=== PATIENT | female | born 1950 | race Caucasian/White ===

== ENCOUNTER 2016-07-13 11:41 | Inpatient (IN) | payer OTHER, MEDICARE ==
--- OUTSIDE RECORDS SUMMARY | 2016-07-13 11:46 | XMS REPORT | Continuity of Care Document ---
:1950 Author Organization [facility] ([facility]) Address [address] [place] [address] Phone [phone] Care Team Providers Name Role Phone FletcherKristiCruz Primary Care Provider [phone] Source Comments This disclosure is being made pursuant to the Care Everywhere program, applicable federal and state laws, and may not contain all informaitonavailable regarding this patient.[facility] ([facility]) Active Allergies and Adverse Reactions Allergen Noted Date Severity Reactions Comments Imidazole 09/01/2014 Unknown Nsaids (Non-Steroidal Anti-Inflammatory Drug) 09/01/2014 Unknown Salicylates 09/01/2014 Unknown Current Medications Prescription Sig. Disp. Refills Start Date End Date Status glyBURIDE 5 mg tablet Take 5 mg by mouth Active every morning with breakfast losartan 25 mg tablet Take 25 mg by mouth Active daily metoPROLol succinate Take 200 mg by mouth Active 100 mg XL tablet 2 times daily dronedarone (MULTAQ) Take 400 mg by mouth Active 400 mg tablet 2 times daily with meals acetaminophen 325 mg Take 2 Tabs (650 mg 60 Tab 09/03/2014 Active tablet total) by mouth every 4 hours as needed atorvastatin 10 mg Take 1 Tab (10 mg 30 Tab 11 09/03/2014 Active tablet total) by mouth daily docusate 100 mg Take 1 Cap (100 mg 60 Cap 09/03/2014 Active capsule total) by mouth 2 times daily as needed for Constipation multivitamin tablet Take 1 Tab by mouth 30 Tab 11 09/03/2014 Active daily rivaroxaban (XARELTO) Take 1 Tab (20 mg 30 Tab 11 09/13/2014 Active 20 mg tablet total) by mouth every evening with dinner clopidogrel 75 mg Take 1 Tab (75 mg 10 Tab 0 09/03/2014 Active tablet total) by mouth daily Active Problems Problem Noted Date Cardiomyopathy in other diseases classified elsewhere 12/11/2014 Overview: Tachycardia-mediated Paroxysmal atrial fibrillation 12/11/2014 Essential hypertension 12/11/2014 Mitral regurgitation 12/11/2014 Morbid obesity 08/31/2014 Stroke 08/31/2014 Memory problem 08/31/2014 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 Headache(784.0) 08/31/2014 Abnormal MRI of head 08/31/2014 Social History Tobacco Use Types Packs/Day Years Used Date Never Smoker Smokeless Tobacco: Never Used Tobacco Cessation:Counseling Given: Yes Comments: Last Filed Vital Signs Vital Sign Reading Time Taken Blood Pressure 110/70 01/23/2015 2:07 PM CDT Pulse 72 01/23/2015 2:07 PM CDT Temperature 36.7 C (98.1 F) 09/03/2014 12:00 PM CDT Respiratory Rate 18 01/23/2015 2:07 PM CDT Height 1.6 m (5' 3") 01/23/2015 2:07 PM CDT Weight 117.935 kg (260 lb) 01/23/2015 2:07 PM CDT Body Mass Index 46.07 01/23/2015 2:07 PM CDT Oxygen Saturation 94% 09/03/2014 12:00 PM CDT Plan of Care Health Maintenance Due Date Last Done Comments HCV Screening 1950 Hepatitis B Vaccine (1 of 3 1950 - Primary Series) Tdap Vaccine 11/03/1962 Td Vaccine 11/03/1969 Pneumococcal Vaccine (1 of 1 11/03/1970 - PPSV23) Cervical Cancer Screening 11/03/1981 Mammogram 1991 Colonoscopy 11/03/2001 Zoster Vaccine 2011 Influenza Vaccine: Seasonal 11/25/2015 (#1) HCC Annual Coding Diabetes 04/26/2016 09/03/2014, Additional history exists without Complication 09/03/2014, 09/03/2014 Lipid Disorder Screening 09/02/2019 09/01/2014 Results from Last 3 Months Not on file
--- NOTE | 2016-07-13 12:21 | HP ---
Chief Complaint - Chief Complaint Date of Service: 07/13/16 Time of Service: 12:20 Chief Complaint: Swelling and redness of right foot especially of third toe with drainage for the last 10 days History of Present Illness: Patient is a 65-year-old WF with a history of HTN, HLD, T2DM, chronic A. fib, gout who came to the office because of redness and swelling of the distal half of RT foot; drainage, swelling and redness of third digit of the RT foot for the last 2 weeks. The drainage is serosanguineous in nature. She denies any fevers or chills and blood sugars have been in the 200s'. Patient was admitted for further care and treatment. Significant labs: WBC 15.3, ESR 119, CRP 27.3, pro-calcitonin 0.38, lactic acid 1.8. After blood cultures, the patient will be started on ampicillin/sulbactam 3 g IV Q6H and vancomycin 1 g IV Q12H. X-ray of the RT foot followed by an MRI with contrast have been ordered. - Patient's Past Medical History Additional info: PAST MEDICAL HISTORY: Hypertension, hyperlipidemia, T2DM 1999, chronic A. fib 2012 [Pradaxa and multaq ], obesity BMI 41.0, Gout. Sleep apnea[nasal CPAP at 10 cm of water with C-Flex of 2], CVA in 08/2014 [LT posterior cerebral artery territory involving LT medial temporal lobe, LT occipital lobe and LT frontal lobe]. Pharmacological stress test negative for ischemia in 06/2013. Patient History - Cancer: No Hx of Cancer Additional Info: PAST SURGICAL HISTORY: Appendectomy, tonsillectomy, BSO, bilateral laser eye surgery. Refuses colonoscopy Tubal ligation, uterine ablation for heavy periods. Patient History - Other: None - Family History Mother Family History - Medical: - 70's-COPD Father Family History - Medical: - 50's- AVR replacement and failure. - Social History Living Situations: spouse Abuse History: No History of abuse Psych History: No pertinent hx Smoking Status: Never smoker Have you smoked in the past 12 months: No Do you dip or chew tobacco: No Patient requests Smoking Cessation Consult: No Initiate information on Smoking Cessation: No Alcohol Use: none Drug Use: none - Immunizations Immunizations Up to Date: Yes Hx Pneumococcal Vaccination: No History of Influenza Vaccine: Yes Review Of Systems (GEN) - Review of Systems Generalized/Overall Review: Absent: Chills, Fever, Weight loss Respiratory: Absent: Cough, Shortness of Breath Cardiac: Present: Edema - RT foot. Absent: Chest Pain Musculoskeletal: Present: Other - pain , swelling, drainage 3rd digit - RT foot. Immunizations: IMMUNIZATION HX Immunizations Up to Date Yes History of Influenza Vaccine Yes Hx Pneumococcal Vaccination No Allergies/Adverse Reactions: Allergies Allergy/AdvReac Type Severity Reaction Status Date / Time No Known Allergies Allergy Verified 08/23/13 07:49 Home Medications: HOME MEDICATIONS Glyburide 2.5 mg PO BID 06/29/13 [Last Taken 08/22/13] Metformin HCl 1,000 mg PO BID 06/29/13 [Last Taken 08/22/13] Losartan Potassium [Cozaar] 25 mg PO DAILY #0 tablet 08/23/13 [Last Taken Unknown] Allopurinol [Zyloprim] 300 mg PO DAILY 08/31/14 [Last Taken Unknown] Dabigatran Etexilate Mesylate [Pradaxa] 150 mg PO BID 08/31/14 [Last Taken Unknown] Dronedarone Hydrochloride [Multaq] 400 mg PO BID 08/31/14 [Last Taken Unknown] Atorvastatin Calcium 10 mg PO HS 07/13/16 [Last Taken Unknown] Calcium Carbonate [Tums] 300 mg PO PRN PRN 07/13/16 [Last Taken Unknown] Metoprolol Succinate [Toprol Xl] 200 mg PO BID 07/13/16 [Last Taken Unknown] Multivitamin tab PO DAILY 07/13/16 [Last Taken Unknown] Exam - Exam Vital Signs: Vital Signs - Last Taken Temp 37.4 C 07/13/16 11:55 Pulse 92 07/13/16 11:55 Resp 24 H 07/13/16 11:55 BP 109/52 07/13/16 11:55 Pulse Ox 95 07/13/16 11:55 Constitutional: Present: Middle aged, Morbidly obese, Looks Older than stated age - in NAD ENT Exam: Present: hearing grossly normal, moist mucous membranes Eye Exam: bilateral eye: PERRL, EOMI Neck: Present: supple, trachea midline Breasts: Present: Exam deferred Respiratory: Present: lungs clear, normal breath sounds. Absent: no accessory muscle use Cardiovascular/Chest: Present: systolic murmur, irregularly irregular Peripheral Pulses: carotid (R): 2+, carotid (L): 2+ Abdomen: Present: Normal bowel sounds, soft, nontender, obese Extremity: Present: lower extremity edema - RT> LT.Redness/ swelling/ erythema present distal 1/2 foot; 3rd digit swollen, red. serosaguinous drainage present ; ulcer at tip of toe. Neurologic: Present: alert, oriented x 3, depressed affect Eye contact: Present: cooperative, good eye contact, normal speech Diagnostic Studies: Laboratory Tests 07/13/16 12:30 WBC 15.3 H Hgb 9.9 L Hct 30.8 L Plt Count 226 07/13/16 12:30 Plasma Sodium 137 Potassium 4.8 H Chloride 98 Carbon Dioxide 25.3 BUN 23 D Creatinine 1.33 D Est GFR (Non-Af Amer) 43 L D Calcium Adj for Albumin 9.6 Total Bilirubin 1.6 H AST 22 ALT 27 Alkaline Phosphatase 80 Total Protein 7.2 Albumin 2.6 L TSH 0.944 07/13/16 12:30 ESR 119 H Lactic Acid, Venous 1.8 C-Reactive Prot, Quant 27.7 H Procalcitonin 0.38 07/13/16 12:30 Mean Blood Glucose 160 Hemoglobin A1c 7.4 H Iron 21 L TIBC 222 L Transferrin % Sat 9 L Vitamin B12 526 XRAY RT FOOT: 07/13/2016: Third distal phalanx osteomyelitis. Possible involvement of third DIP joint. MRI FOOT W/ W/O Contrast: 07/13/16: IMPRESSION: Osteomyelitis at the level of the third distal phalanx with cortical destruction. Additionally there is osteomyelitis involving the head of the third distal phalanx. Suspected osteitis involving the base of the third middle phalanx and the third proximal phalanx. Soft tissue crater and suspected 4 mm abscess at the tip of the third digit. There are joint effusions at the level of the third DIP joint and 1st-4th joints. Underlying septic arthritis not excluded at all levels. Findings compatible with cellulitis and myositis. Assessment/Plan - Narrative Narrative: 1. Osteomyelitis 3rd digit RT foot: Confirmed on x-ray and MRI. Patient on ampicillin/sulbactam 3 g IV every 6 hours and vancomycin 1 g every 12 hours. Pharmacy to manage levels and BUN/CR. Normal saline at 75 mL an hour. Check BMP on 07/14/2016. Patient on probiotics. Dr. Ramirez on consult [ contacted]. 2. T2 DM: Discontinue metformin and glyburide. Start Lantus 12 units at bedtime and Humalog 6 units TID AC with a sliding scale. A1c 7.6[mean 160 mg/dL] may be inaccurate due to underlying anemia. Adjust accordingly. 3. Anemia: H/H at 9.9/30.8 on admission. T sat at 9% c/w fe deficiency. B12 WNL 526 pg/ ml. transfuse IV iron 500 mg 1 today. May need workup as an outpatient basis. 4. FLORY on CPAP. Continue nasal CPAP at 10 cm of water with C-Flex of 2. 5. Chronic A. fib. Continue Pradaxa 150 mg PO BID., Metoprolol ER 200 mg PO BID, Multaq 400 mg PO BID. Expected stay is 2 midnights or more
[2016-07-13] MEDS ORDERED: ENOXAPARIN SODIUM 40 MG/0.4 ML SYRG SC SCH (12:30)
[2016-07-13] MEDS ORDERED: AMPICILLIN SODIUM/SULBACTAM NA 3 GM in NORMAL SALINE 100 ML IV STA (12:45)
[2016-07-13 12:57] LABS: Hematocrit 30.8 % (37.0-47.0); Hemoglobin 9.9 gm/dL (12.5-16.0); Mean Cell Volume 91.9 fl (78-100); Mean Corpuscular Hemoglobin 29.6 pg (27-31); Mean Corpuscular Hgb Conc 32.1 g/dl (32-36); Mean Platelet Volume 10.6 fl (6.0-9.5); Neutrophil # 12.3 K/mm3 (1.3-6.0); Neutrophil % 80.4 % (42-75.0); Platelet Count 226 K/mm3 (150-450); Red Blood Count 3.35 M/mm3 (4.2-5.4); Red Cell Distribution Width 14.6 % (11.5-14.0); White Blood Count 15.3 K/mm3 (4.0-10.5)
[2016-07-13 13:19] LABS: Hemoglobin A1C 7.4 % (4.00-6.0)
[2016-07-13 13:21] LABS: Albumin * 2.6 gm/dl (3.4-5.0); Anion Gap 15.5 mmol/L (6.8-13.8); BUN/Creatinine Ratio 17.3 (9.0-21.6); Bilirubin, Total 1.6 mg/dL (0.0-1.1); Ca. Corrected For Albumin 9.6 mg/dL (8.4-10.2); Calcium * 8.8 mg/dL (7.9-10.9); Carbon Dioxide 25.3 mmol/L (24-32.6); Potassium 4.8 mmol/L (3.4-4.6); TSH * 0.944 uIU/mL (0.358-3.74); Total Protein 7.2 gm/dL (6.2-8.2)
[2016-07-13 13:28] LABS: Iron 21 mcg/dL (35-120); Transferrin Sat. (% Sat.) 9 % (15-55)
[2016-07-13 13:29] LABS: CRP 27.7 mg/dL (0.0-0.9)
[2016-07-13] MEDS ORDERED: IRON SUCROSE COMPLEX 500 MG in NORMAL SALINE 250 ML IV ONE (13:30)
[2016-07-13] MEDS ORDERED: VANCOMYCIN HCL 1 GM in DEXTROSE 5 % IN WATER 250 ML IV SCH ×2 (14:00)
[2016-07-13] MEDS ORDERED: INSULIN GLARGINE,HUM.REC.ANLOG 100 UNITS/ML VIAL SC STA (14:08)
[2016-07-13] MEDS ORDERED: CALCIUM CARBONATE 500 MG TAB.CHEW PO PRN (14:15)
[2016-07-13] MEDS ORDERED: NORMAL SALINE 1,000 ML IV PRN (14:25)
[2016-07-13] MEDS ORDERED: ERGOCALCIFEROL 50000 UNIT TABLET PO ONE (17:30)
--- NOTE | 2016-07-13 17:35 | CONS ---
- Reason for consultation (1) Diabetic ulcer of toe Date of Service: 07/13/16 (2) Osteomyelitis Date of Service: 07/13/16 HPI - General Date of Service: 07/13/16 Source: patient Exam Limitations: no limitations - History of Present Illness Initial Comments: Pt seen at bedside. States that approximately a week and a half ago, she noticed a small sore on the tip of her right 3rd toe. Tried to treat herself at home with no success. She came to see PCP today and was found to have significant infection in the toe extending to the dorsum of the foot. She was admitted for further treatment. Xray and MRI of the foot have been completed suggesting osteomyelitis of the distal phalanx and head of middle phalanx of the toe. I was consulted for surgical evaluation. Timing/Duration: 1 week, getting worse Severity: moderate Associated Symptoms: malaise Allergies/Adverse Reactions: Allergies No Known Allergies Allergy (Verified 08/23/13 07:49) Home Medications: Home Medications Medication Instructions Recorded Last Taken Glyburide 2.5 mg PO BID 06/29/13 08/22/13 Metformin HCl 1,000 mg PO BID 06/29/13 08/22/13 Allopurinol [Zyloprim] 300 mg PO DAILY 08/31/14 Unknown Dabigatran Etexilate Mesylate 150 mg PO BID 08/31/14 Unknown [Pradaxa] Dronedarone Hydrochloride [Multaq] 400 mg PO BID 08/31/14 Unknown Atorvastatin Calcium 10 mg PO HS 07/13/16 Unknown Calcium Carbonate [Tums] 300 mg PO PRN PRN 07/13/16 Unknown Metoprolol Succinate [Toprol Xl] 200 mg PO BID 07/13/16 Unknown Multivitamin tab PO DAILY 07/13/16 Unknown - Patient's Past Medical History Patient History - Medical: Arthritis, Diabetes Type 2 Patient History - Cardiac/Respiratory: Atrial Fibrillation, Bronchitis, CVA/ Stroke, Hypertension Patient History - Cancer: No Hx of Cancer Patient History - Surgical Procedures: Appendectomy Patient History - Other: None - Family History Mother Family History - Medical: - 70's-COPD Family History - Cardiac/Respiratory: COPD Father Family History - Medical: - 50's- AVR replacement and failure. - Social History Living Situations: spouse Abuse History: No History of abuse Psych History: No pertinent hx Smoking Status: Never smoker Have you smoked in the past 12 months: No Do you dip or chew tobacco: No Patient requests Smoking Cessation Consult: No Initiate information on Smoking Cessation: No Alcohol Use: none Drug Use: none - Immunizations Immunizations Up to Date: Yes Hx Pneumococcal Vaccination: No History of Influenza Vaccine: Yes Procedures D & C NEC (07/09/99) HYSTEROSCOPY (07/09/99) Medications - Medications Current Medications: Current Medications Iron Sucrose 500 mg/ Sodium (Chloride) 275 mls @ 70 mls/hr IV ONCE ONE Stop: 07/13/16 17:25 Last Admin: 07/13/16 16:28 Dose: 70 mls/hr Review of Systems - Review of Systems Generalized/Overall Review: Present: Malaise Neurological: Present: Numbness Skin: Present: Other - Ulceration and redness to right foot Misc: All systems neg except as marked Physical Examination - Exam Vital Signs: Vital Signs - Last Taken Temp 37.1 C 07/13/16 14:39 Pulse 96 07/13/16 14:39 Resp 20 07/13/16 14:39 BP 104/44 07/13/16 14:39 Pulse Ox 95 07/13/16 14:39 O2 Oxygen Delivery Method Room Air Constitutional: Present: Alert, Oriented x3, Cooperative Peripheral Pulses: dorsalis-pedis (R): 2+, dorsalis-pedis (L): 2+ Extremity: Present: lower extremity edema Skin Exam: Present: other - Ulceration to distal tip of right 3rd toe measuring 0.5 x 0.7 x 0.4 cm. No tunneling or undermining. Loss of tissue to full thickness with exposure of subcutaneous fat layer. Base mostly fibrotic with some granulation tissue intermixed. Surrounding tissue with significant erythema extending from the toe to the dorsal midfoot. Skin warm to touch. Minimal purulent drainage, slight malodor. No exposed tendon or bone. Neurologic: Present: sensory deficit - Results and Findings: Lab/Microbiology results last 24 hrs: Abnormal/Pending Laboratory Last 24 HRS 07/13/16 07/13/16 07/13/16 12:30 12:30 12:30 WBC RBC Hgb Hct RDW MPV Immature Gran % (Auto) Immature Gran # (Auto) Neutrophils % Lymphocytes % Neutrophils # Lymphocytes # Monocytes # ESR Potassium 4.8 H Anion Gap 15.5 H Est GFR (Non-Af Amer) 43 L D Random Glucose 281 H Hemoglobin A1c 7.4 H Iron 21 L TIBC 222 L Transferrin % Sat 9 L Total Bilirubin 1.6 H C-Reactive Prot, Quant 27.7 H Albumin 2.6 L 07/13/16 07/13/16 12:30 12:30 WBC 15.3 H RBC 3.35 L Hgb 9.9 L Hct 30.8 L RDW 14.6 H MPV 10.6 H Immature Gran % (Auto) 2.30 H Immature Gran # (Auto) 0.35 H Neutrophils % 80.4 H Lymphocytes % 8.0 L Neutrophils # 12.3 H Lymphocytes # 1.2 L Monocytes # 1.4 H ESR 119 H Potassium Anion Gap Est GFR (Non-Af Amer) Random Glucose Hemoglobin A1c Iron TIBC Transferrin % Sat Total Bilirubin C-Reactive Prot, Quant Albumin - Assessments/Findings (1) Diabetic ulcer of toe Diagnosis(s): Daily dressings with dry gauze, sarah, and tape to right 3rd toe. Keep foot washed with soap and water prior to new dressings. New dressing applied today. Problem: Acute (2) Osteomyelitis Diagnosis(s): Reviewed xray and MRI findings with pt, consistent with osteomyelitis of the distal 3rd toe right foot. Discussed treatment options to include, but not limited to, usp IV ABX with potential of need for surgery vs amputation of the distal 3rd toe in the next few days and a few weeks of ABX orally. Pt elects for amputation of the distal 3rd toe. Will coordinate with OR and schedule accordingly. Will be consented for partial amputation right 3rd toe. Continue IV ABX and daily dressing changes. Problem: Acute Qualifiers: Osteomyelitis type: other acute Osteomyelitis location: foot Laterality: right Qualified Code(s): M86.171 - Other acute osteomyelitis, right ankle and foot
[2016-07-13] MEDS: INSULIN LISPRO 100 UNITS/ML VIAL SC SCH ×2 (17:57→17:59)
[2016-07-13] MEDS: METOPROLOL SUCCINATE 100 MG TABLET.SA PO SCH (20:29)
[2016-07-13] MEDS: SACCHAROMYCES BOULARDII 250 MG CAPSULE PO SCH (20:30)
[2016-07-13] MEDS: ROSUVASTATIN CALCIUM 10 MG TABLET PO SCH (20:30)
[2016-07-13] MEDS: DABIGATRAN ETEXILATE MESYLATE 150 MG CAPSULE PO SCH (20:30)
[2016-07-13] MEDS: ACETAMINOPHEN 500 MG TABLET PO PRN (20:30)
[2016-07-13] MEDS: INSULIN GLARGINE,HUM.REC.ANLOG 100 UNITS/ML VIAL SC SCH (20:31)
[2016-07-13] MEDS: AMPICILLIN SODIUM/SULBACTAM NA 3 GM in NORMAL SALINE 100 ML IV SCH (20:44)
[2016-07-13] MEDS: VANCOMYCIN HCL 1 GM in DEXTROSE 5 % IN WATER 250 ML IV SCH ×2 (21:21)
[2016-07-14] MEDS: AMPICILLIN SODIUM/SULBACTAM NA 3 GM in NORMAL SALINE 100 ML IV SCH ×5 (00:33→23:50)
[2016-07-14 06:13] LABS: Hematocrit 30.9 % (37.0-47.0); Hemoglobin 9.9 gm/dL (12.5-16.0); Mean Corpuscular Hemoglobin 29.5 pg (27-31); Mean Platelet Volume 11.2 fl (6.0-9.5); Platelet Count 233 K/mm3 (150-450); Red Blood Count 3.36 M/mm3 (4.2-5.4); Red Cell Distribution Width 14.6 % (11.5-14.0)
[2016-07-14 06:21] LABS: Total Cells Counted 100
[2016-07-14 06:33] LABS: Anion Gap 17.3 mmol/L (6.8-13.8); BUN/Creatinine Ratio 18.8 (9.0-21.6); Calcium * 8.9 mg/dL (7.9-10.9); Carbon Dioxide 23.7 mmol/L (24-32.6); Estimated Creat Clear 55.4
[2016-07-14 06:47] LABS: Band 14 % (0-2.0); Lymphocyte 22 % (20-51); Monocyte 5 % (0-9); Neutrophil 59 % (42-75); Neutrophil # 6.5 K/mm3 (1.3-6.0)
[2016-07-14 06:48] LABS: Platelet Estimate Normal (NORMAL); RBC Morphology Normal (NORMAL)
[2016-07-14] MEDS: VANCOMYCIN HCL 1 GM in DEXTROSE 5 % IN WATER 250 ML IV SCH ×4 (07:03→19:30)
[2016-07-14] MEDS: INSULIN LISPRO 100 UNITS/ML VIAL SC SCH ×6 (07:06→17:04)
[2016-07-14] MEDS: SACCHAROMYCES BOULARDII 250 MG CAPSULE PO SCH ×2 (08:45→20:40)
[2016-07-14] MEDS: LOSARTAN POTASSIUM 50 MG TABLET PO SCH (08:45)
[2016-07-14] MEDS: DABIGATRAN ETEXILATE MESYLATE 150 MG CAPSULE PO SCH ×2 (08:46→20:40)
[2016-07-14] MEDS: ALLOPURINOL 300 MG TABLET PO SCH (08:47)
[2016-07-14] MEDS: METOPROLOL SUCCINATE 100 MG TABLET.SA PO SCH ×2 (08:47→20:40)
--- NOTE | 2016-07-14 08:59 | PN ---
Subjective - Date and Time Seen Date: 07/14/16 Time: 08:52 Subjective Narrative: Complaining of foot pain Objective - Review of Systems Generalized/Overall Review: Reports: No Symptoms Reported EENTM: Reports: No Symptoms Reported Respiratory: Reports: No Symptoms Reported Cardiac: Reports: No Symptoms Reported Abdominal: Reports: No Symptoms Reported Genitourinary Symptoms: Reports: No Symptoms Reported Musculoskeletal Complaints: Reports: Joint Swelling Neurological: Reports: No Symptoms Reported Skin: Reports: No Symptoms Reported Endocrine: Reports: No Symptoms Reported - Vitals Vitals: Last Vital Signs Temp 37.0 C 07/14/16 07:42 Pulse 92 07/14/16 08:47 Resp 16 07/14/16 07:42 BP 108/50 07/14/16 08:47 Pulse Ox 100 07/14/16 07:42 - Abnormal Lab Findings Abnormal Lab Findings: Abnormal Lab Results 07/13/16 07/13/16 07/13/16 Range/Units 12:30 12:30 12:30 WBC 15.3 H (4.0-10.5) K/mm3 RBC 3.35 L (4.2-5.4) M/mm3 Hgb 9.9 L (12.5-16.0) gm/dL Hct 30.8 L (37.0-47.0) % RDW 14.6 H (11.5-14.0) % MPV 10.6 H (6.0-9.5) fl Immature Gran % (Auto) 2.30 H (0.001-0.429) % Immature Gran # (Auto) 0.35 H (0.000-0.0310) K/mm3 Neutrophils % 80.4 H (42-75.0) % Band Neuts % (Manual) (0-2.0) % Lymphocytes % 8.0 L (20-51) % Neutrophils # 12.3 H (1.3-6.0) K/mm3 Neutrophils # (Manual) (1.3-6.0) K/mm3 Lymphocytes # 1.2 L (1.5-3.5) k/mm3 Monocytes # 1.4 H (0.0-1.0) k/mm3 ESR 119 H (0-15) mm/hr Potassium 4.8 H (3.4-4.6) mmol/L Carbon Dioxide (24-32.6) mmol/L Anion Gap 15.5 H (6.8-13.8) mmol/L Est GFR (Non-Af Amer) 43 L D (60-130) mL/min Random Glucose 281 H (70-110) mg/dL Hemoglobin A1c (4.00-6.0) % Iron (35-120) mcg/dL TIBC (260-445) mcg/dL Transferrin % Sat (15-55) % Total Bilirubin 1.6 H (0.0-1.1) mg/dL C-Reactive Prot, Quant 27.7 H (0.0-0.9) mg/dL Albumin 2.6 L (3.4-5.0) gm/dl 07/13/16 07/13/16 07/14/16 Range/Units 12:30 12:30 05:25 WBC 11.0 H D (4.0-10.5) K/mm3 RBC 3.36 L (4.2-5.4) M/mm3 Hgb 9.9 L (12.5-16.0) gm/dL Hct 30.9 L (37.0-47.0) % RDW 14.6 H (11.5-14.0) % MPV 11.2 H (6.0-9.5) fl Immature Gran % (Auto) (0.001-0.429) % Immature Gran # (Auto) (0.000-0.0310) K/mm3 Neutrophils % (42-75.0) % Band Neuts % (Manual) 14 H (0-2.0) % Lymphocytes % (20-51) % Neutrophils # (1.3-6.0) K/mm3 Neutrophils # (Manual) 6.5 H (1.3-6.0) K/mm3 Lymphocytes # (1.5-3.5) k/mm3 Monocytes # (0.0-1.0) k/mm3 ESR (0-15) mm/hr Potassium (3.4-4.6) mmol/L Carbon Dioxide (24-32.6) mmol/L Anion Gap (6.8-13.8) mmol/L Est GFR (Non-Af Amer) (60-130) mL/min Random Glucose (70-110) mg/dL Hemoglobin A1c 7.4 H (4.00-6.0) % Iron 21 L (35-120) mcg/dL TIBC 222 L (260-445) mcg/dL Transferrin % Sat 9 L (15-55) % Total Bilirubin (0.0-1.1) mg/dL C-Reactive Prot, Quant (0.0-0.9) mg/dL Albumin (3.4-5.0) gm/dl 07/14/16 Range/Units 05:25 WBC (4.0-10.5) K/mm3 RBC (4.2-5.4) M/mm3 Hgb (12.5-16.0) gm/dL Hct (37.0-47.0) % RDW (11.5-14.0) % MPV (6.0-9.5) fl Immature Gran % (Auto) (0.001-0.429) % Immature Gran # (Auto) (0.000-0.0310) K/mm3 Neutrophils % (42-75.0) % Band Neuts % (Manual) (0-2.0) % Lymphocytes % (20-51) % Neutrophils # (1.3-6.0) K/mm3 Neutrophils # (Manual) (1.3-6.0) K/mm3 Lymphocytes # (1.5-3.5) k/mm3 Monocytes # (0.0-1.0) k/mm3 ESR (0-15) mm/hr Potassium (3.4-4.6) mmol/L Carbon Dioxide 23.7 L (24-32.6) mmol/L Anion Gap 17.3 H (6.8-13.8) mmol/L Est GFR (Non-Af Amer) (60-130) mL/min Random Glucose 162 H D (70-110) mg/dL Hemoglobin A1c (4.00-6.0) % Iron (35-120) mcg/dL TIBC (260-445) mcg/dL Transferrin % Sat (15-55) % Total Bilirubin (0.0-1.1) mg/dL C-Reactive Prot, Quant (0.0-0.9) mg/dL Albumin (3.4-5.0) gm/dl - Exam Constitutional: Present: Alert, Oriented x3, Cooperative ENT Exam: Present: normal ENT inspection Respiratory: Present: lungs clear, normal breath sounds Cardiovascular/Chest: Present: irregularly irregular Abdomen: Present: Normal bowel sounds, soft, nontender /Rectal: Present: Exam deferred Extremity: Present: other - Swelling and redness over dorsum of the right foot . clear Discharge of the second big toe Assessment/Plan - Problems/Diagnosis (1) Atrial fibrillation Problem: Chronic (2) Osteomyelitis Problem: Acute Qualifiers: Osteomyelitis location: foot Narrative: Consult to Dr. Ramirez and continue current antibiotic culture be obtained today (3) Diabetes Problem: Chronic Qualifiers: Diabetes mellitus type: type 2 Narrative: Diabetes mellitus type 2 out of control Metformin and glyburide will be started Continue current insulin regimen
[2016-07-14] MEDS ORDERED: glyBURIDE 2.5 MG TABLET PO SCH (09:00)
[2016-07-14] MEDS ORDERED: metFORMIN HCL 500 MG TABLET PO SCH (09:00)
[2016-07-14 09:21] LABS: Urine Bilirubin Negative (NEGATIVE); Urine Blood 50 /ul (NEGATIVE); Urine Ketone Negative (NEGATIVE); Urine Nitrite Negative (NEGATIVE); Urine Protein 15 mg/dL (NEGATIVE); Urine Urobilinogen Normal (NORMAL)
[2016-07-14 09:28] LABS: Urine Appearance Slightly Cloudy; Urine Color Yellow
[2016-07-14 09:30] LABS: Urine Bacteria 3+; Urine RBC 0-5 /hpf (0-5)
[2016-07-14 09:40] LABS: Iron 206 mcg/dL (35-120); Transferrin Sat. (% Sat.) 94 % (15-55)
[2016-07-14] MEDS: glyBURIDE 5 MG TABLET PO SCH ×2 (10:18→20:40)
[2016-07-14] MEDS: ACETAMINOPHEN 500 MG TABLET PO PRN (19:36)
[2016-07-14] MEDS: INSULIN GLARGINE,HUM.REC.ANLOG 100 UNITS/ML VIAL SC SCH (20:39)
[2016-07-14] MEDS: ROSUVASTATIN CALCIUM 10 MG TABLET PO SCH (20:40)
[2016-07-15] MEDS ORDERED: VANCOMYCIN HCL LEVEL XX ONE (06:30)
[2016-07-15] MEDS: AMPICILLIN SODIUM/SULBACTAM NA 3 GM in NORMAL SALINE 100 ML IV SCH ×4 (06:31→23:57)
[2016-07-15] MEDS: INSULIN LISPRO 100 UNITS/ML VIAL SC SCH ×6 (06:38→17:21)
[2016-07-15] MEDS: ACETAMINOPHEN 500 MG TABLET PO PRN ×2 (07:25→16:09)
[2016-07-15] MEDS: VANCOMYCIN HCL 1.25 GM in DEXTROSE 5 % IN WATER 250 ML IV SCH ×4 (07:27→20:50)
[2016-07-15] MEDS: VANCOMYCIN HCL 1 GM in DEXTROSE 5 % IN WATER 250 ML IV SCH ×2 (08:00)
[2016-07-15] MEDS: DABIGATRAN ETEXILATE MESYLATE 150 MG CAPSULE PO SCH ×2 (08:44→20:42)
[2016-07-15] MEDS: METOPROLOL SUCCINATE 100 MG TABLET.SA PO SCH ×2 (08:44→20:43)
[2016-07-15] MEDS: SACCHAROMYCES BOULARDII 250 MG CAPSULE PO SCH ×2 (08:44→20:42)
[2016-07-15] MEDS: glyBURIDE 5 MG TABLET PO SCH ×2 (08:44→20:42)
[2016-07-15] MEDS: LOSARTAN POTASSIUM 50 MG TABLET PO SCH (08:44)
[2016-07-15] MEDS: ALLOPURINOL 300 MG TABLET PO SCH (08:44)
--- NOTE | 2016-07-15 08:55 | PN ---
Subjective - Date and Time Seen Date: 07/15/16 Time: 08:53 Subjective Narrative: Less pain and no other complaint Objective - Review of Systems Generalized/Overall Review: Reports: No Symptoms Reported EENTM: Reports: No Symptoms Reported Respiratory: Reports: No Symptoms Reported Cardiac: Reports: No Symptoms Reported Abdominal: Reports: No Symptoms Reported Genitourinary Symptoms: Reports: No Symptoms Reported Musculoskeletal Complaints: Reports: No Symptoms Reported Neurological: Reports: No Symptoms Reported Skin: Reports: No Symptoms Reported - Vitals Vitals: Last Vital Signs Temp 36.8 C 07/15/16 06:54 Pulse 105 H 07/15/16 08:44 Resp 20 07/15/16 06:54 BP 112/57 07/15/16 08:44 Pulse Ox 94 07/15/16 06:54 - Abnormal Lab Findings Abnormal Lab Findings: Abnormal Lab Results 07/14/16 07/14/16 Range/Units 08:30 Unknown Iron 206 H (35-120) mcg/dL TIBC 220 L (260-445) mcg/dL Transferrin % Sat 94 H (15-55) % Urine Protein 15 H (NEGATIVE) mg/dL Urine Blood 50 H (NEGATIVE) /ul Ur Leukocyte Esterase 75 H (NEGATIVE) /ul Urine WBC 10-25 H (0-5) /hpf Ur Epithelial Cells 5-10 H (0-5) /hpf Urine Bacteria 3+ H (NONE) Urine Comment Culture ordered L - Exam Constitutional: Present: Alert, Oriented x3, Cooperative Respiratory: Present: lungs clear, normal breath sounds Cardiovascular/Chest: Present: irregularly irregular Abdomen: Present: soft, nontender Extremity: Present: other - Right foot examination still swollen shrinking redness less tenderness Assessment/Plan - Problems/Diagnosis (1) Atrial fibrillation Problem: Chronic (2) Osteomyelitis Problem: Acute Qualifiers: Osteomyelitis type: other acute Osteomyelitis location: foot Laterality: right Qualified Code(s): M86.171 - Other acute osteomyelitis, right ankle and foot Narrative: Continue current antibiotic Wound culture results pending growing a staph ruling out MRSA (3) Diabetes Problem: Chronic Qualifiers: Diabetes mellitus type: type 2
[2016-07-15 09:31] LABS: Iron 24 mcg/dL (35-120); Transferrin Sat. (% Sat.) 12 % (15-55)
[2016-07-15] MEDS: IRON SUCROSE COMPLEX 100 MG in NORMAL SALINE 100 ML IV SCH (10:51)
--- NOTE | 2016-07-15 13:11 | PN ---
Subjective - Date and Time Seen Date: 07/15/16 Time: 12:30 Subjective Narrative: Pt evaluated at bedside. Denies any N/V/F/C. Denies any pain in her right foot /toes. No dressing applied to right foot at time of visit. Objective - Review of Systems Neurological: Reports: Numbness Skin: Reports: Other - ulcer right 3rd toe, cellulitis right foot - Vitals Vitals: Last Vital Signs Temp 36.6 C 07/15/16 11:10 Pulse 109 H 07/15/16 11:10 Resp 18 07/15/16 11:10 BP 94/54 07/15/16 11:10 Pulse Ox 94 07/15/16 11:10 - Abnormal Lab Findings Abnormal Lab Findings: Abnormal Lab Results 07/15/16 Range/Units 06:30 Iron 24 L (35-120) mcg/dL TIBC 202 L (260-445) mcg/dL Transferrin % Sat 12 L (15-55) % - EKG/Xray Findings XRAY: foot Interpretation: Reviewed by me - Exam Constitutional: Present: Alert, Oriented x3, Cooperative, No distress Extremity: Present: lower extremity edema Skin Exam: Present: other - Erythema remains about the right foot, however has improved since last visit. Ulceration to right 3rd toe unchanged in size. Still with moderate serous drainage, slight malodor. Toe remains swollen. Neurologic: Present: sensory deficit Assessment/Plan Plan Narrative: Discussed with pt again treatment options. Pt would like to proceed with surgery. Will go to OR this Wednesday for partial amputation of right 3rd toe. Discussed risks vs benefits of surgical intervention, pt states understanding and wishes to proceed. No guarantees given or implied. Orders placed for consent and NPO. - Problems/Diagnosis (1) Diabetic ulcer of toe Problem: Acute Narrative: Continue daily dressing changes. (2) Osteomyelitis Problem: Acute Qualifiers: Osteomyelitis type: other acute Osteomyelitis location: foot Laterality: right Qualified Code(s): M86.171 - Other acute osteomyelitis, right ankle and foot Narrative: Continue IV ABX. Plan to go to OR this Wednesday for partial amputation right 3rd toe.
[2016-07-15] MEDS: INSULIN GLARGINE,HUM.REC.ANLOG 100 UNITS/ML VIAL SC SCH (20:41)
[2016-07-15] MEDS: ROSUVASTATIN CALCIUM 10 MG TABLET PO SCH (20:42)
[2016-07-16 06:02] LABS: Hematocrit 29.2 % (37.0-47.0); Hemoglobin 9.1 gm/dL (12.5-16.0); Mean Cell Volume 94.5 fl (78-100); Mean Corpuscular Hemoglobin 29.4 pg (27-31); Mean Corpuscular Hgb Conc 31.2 g/dl (32-36); Neutrophil % 76.7 % (42-75.0); Platelet Count 267 K/mm3 (150-450); Red Blood Count 3.09 M/mm3 (4.2-5.4); Red Cell Distribution Width 14.8 % (11.5-14.0)
[2016-07-16] MEDS: AMPICILLIN SODIUM/SULBACTAM NA 3 GM in NORMAL SALINE 100 ML IV SCH (06:47)
[2016-07-16] MEDS: INSULIN LISPRO 100 UNITS/ML VIAL SC SCH ×2 (07:35→07:36)
[2016-07-16] MEDS: VANCOMYCIN HCL 1.25 GM in DEXTROSE 5 % IN WATER 250 ML IV SCH ×2 (07:59)
[2016-07-16] MEDS: METOPROLOL SUCCINATE 100 MG TABLET.SA PO SCH ×2 (08:01→20:19)
[2016-07-16] MEDS: glyBURIDE 5 MG TABLET PO SCH (08:01)
[2016-07-16] MEDS: ALLOPURINOL 300 MG TABLET PO SCH (08:01)
[2016-07-16] MEDS: SACCHAROMYCES BOULARDII 250 MG CAPSULE PO SCH ×2 (08:01→20:18)
[2016-07-16] MEDS: DABIGATRAN ETEXILATE MESYLATE 150 MG CAPSULE PO SCH ×2 (08:01→20:19)
[2016-07-16] MEDS: LOSARTAN POTASSIUM 50 MG TABLET PO SCH (08:05)
[2016-07-16] MEDS: ACETAMINOPHEN 500 MG TABLET PO PRN ×2 (08:05→17:04)
--- NOTE | 2016-07-16 08:37 | PN ---
Subjective - Date and Time Seen Date: 07/16/16 Time: 08:32 Subjective Narrative: Less pain and no other complaints Objective - Review of Systems Generalized/Overall Review: Reports: No Symptoms Reported EENTM: Reports: No Symptoms Reported Respiratory: Reports: No Symptoms Reported Cardiac: Reports: No Symptoms Reported Abdominal: Reports: No Symptoms Reported Genitourinary Symptoms: Reports: No Symptoms Reported Musculoskeletal Complaints: Reports: No Symptoms Reported Neurological: Reports: No Symptoms Reported Skin: Reports: No Symptoms Reported - Vitals Vitals: Last Vital Signs Temp 37 C 07/16/16 08:00 Pulse 113 H 07/16/16 08:05 Resp 20 07/16/16 08:00 BP 108/63 07/16/16 08:05 Pulse Ox 96 07/16/16 08:00 - Abnormal Lab Findings Abnormal Lab Findings: Abnormal Lab Results 07/15/16 07/16/16 07/16/16 Range/Units 06:30 05:57 05:57 WBC 13.0 H (4.0-10.5) K/mm3 RBC 3.09 L (4.2-5.4) M/mm3 Hgb 9.1 L (12.5-16.0) gm/dL Hct 29.2 L (37.0-47.0) % MCHC 31.2 L (32-36) g/dl RDW 14.8 H (11.5-14.0) % MPV 11.0 H (6.0-9.5) fl Immature Gran % (Auto) 2.20 H (0.001-0.429) % Immature Gran # (Auto) 0.28 H (0.000-0.0310) K/mm3 Neutrophils % 76.7 H (42-75.0) % Lymphocytes % 9.7 L (20-51) % Monocytes % 9.6 H (0.0-9) % Neutrophils # 10.0 H (1.3-6.0) K/mm3 Lymphocytes # 1.3 L (1.5-3.5) k/mm3 Monocytes # 1.2 H (0.0-1.0) k/mm3 ESR 97 H (0-15) mm/hr Iron 24 L (35-120) mcg/dL TIBC 202 L (260-445) mcg/dL Transferrin % Sat 12 L (15-55) % C-Reactive Prot, Quant (0.0-0.9) mg/dL 07/16/16 Range/Units 05:57 WBC (4.0-10.5) K/mm3 RBC (4.2-5.4) M/mm3 Hgb (12.5-16.0) gm/dL Hct (37.0-47.0) % MCHC (32-36) g/dl RDW (11.5-14.0) % MPV (6.0-9.5) fl Immature Gran % (Auto) (0.001-0.429) % Immature Gran # (Auto) (0.000-0.0310) K/mm3 Neutrophils % (42-75.0) % Lymphocytes % (20-51) % Monocytes % (0.0-9) % Neutrophils # (1.3-6.0) K/mm3 Lymphocytes # (1.5-3.5) k/mm3 Monocytes # (0.0-1.0) k/mm3 ESR (0-15) mm/hr Iron (35-120) mcg/dL TIBC (260-445) mcg/dL Transferrin % Sat (15-55) % C-Reactive Prot, Quant 32.6 H (0.0-0.9) mg/dL - Exam Constitutional: Present: Alert, Oriented x3, Cooperative Respiratory: Present: lungs clear, normal breath sounds Cardiovascular/Chest: Present: irregularly irregular Abdomen: Present: soft, nontender Extremity: Present: other - Right foot less area of redness and no problems smelling discharge and less tender Skin Exam: Present: normal color Neurologic: Present: canary raiser II-XII nml as tested Assessment/Plan - Problems/Diagnosis (1) Atrial fibrillation Problem: Chronic (2) Osteomyelitis Problem: Acute Qualifiers: Osteomyelitis type: other acute Osteomyelitis location: foot Laterality: right Qualified Code(s): M86.171 - Other acute osteomyelitis, right ankle and foot Narrative: Wound culture growing staph sensitivity still pending She is cleared for amputation of the tip of the right fourth toe Will hold the evening dose of insulin and hold the morning dose of pradaxa (3) Diabetes Problem: Chronic Qualifiers: Diabetes mellitus type: type 2 (4) Anemia Problem: Acute Qualifiers: Anemia type: iron deficiency
[2016-07-16] MEDS: IRON SUCROSE COMPLEX 100 MG in NORMAL SALINE 100 ML IV SCH (10:11)
[2016-07-16] MEDS: ceFAZolin SODIUM 1 GM in DEXTROSE 5 % IN WATER 100 ML IV SCH ×4 (10:56→17:06)
[2016-07-16] MEDS: ROSUVASTATIN CALCIUM 10 MG TABLET PO SCH (20:19)
[2016-07-17] MEDS: ceFAZolin SODIUM 1 GM in DEXTROSE 5 % IN WATER 100 ML IV SCH ×6 (01:54→17:03)
[2016-07-17 06:03] LABS: Hemoglobin 9.7 gm/dL (12.5-16.0); Mean Cell Volume 96.1 fl (78-100); Mean Corpuscular Hemoglobin 29.1 pg (27-31); Mean Corpuscular Hgb Conc 30.3 g/dl (32-36); Platelet Count 310 K/mm3 (150-450); Red Blood Count 3.33 M/mm3 (4.2-5.4); Red Cell Distribution Width 14.9 % (11.5-14.0); White Blood Count 12.6 K/mm3 (4.0-10.5)
[2016-07-17 06:27] LABS: Albumin * 2.2 gm/dl (3.4-5.0); Anion Gap 13.1 mmol/L (6.8-13.8); BUN/Creatinine Ratio 11.1 (9.0-21.6); Bilirubin, Total 0.7 mg/dL (0.0-1.1); Ca. Corrected For Albumin 9.6 mg/dL (8.4-10.2); Calcium * 8.5 mg/dL (7.9-10.9); Carbon Dioxide 27.2 mmol/L (24-32.6); Potassium 4.3 mmol/L (3.4-4.6); Total Protein 7.5 gm/dL (6.2-8.2)
--- NOTE | 2016-07-17 08:12 | PN ---
Subjective - Date and Time Seen Date: 07/17/16 Time: 08:06 Subjective Narrative: Less pain and no new complain Objective - Review of Systems Generalized/Overall Review: Reports: No Symptoms Reported EENTM: Reports: No Symptoms Reported Respiratory: Reports: No Symptoms Reported Cardiac: Reports: No Symptoms Reported Abdominal: Reports: No Symptoms Reported Genitourinary Symptoms: Reports: No Symptoms Reported Skin: Reports: No Symptoms Reported - Vitals Vitals: Last Vital Signs Temp 36.8 C 07/17/16 07:12 Pulse 101 H 07/17/16 07:12 Resp 20 07/17/16 07:12 BP 118/54 07/17/16 07:12 Pulse Ox 96 07/17/16 07:12 - Abnormal Lab Findings Abnormal Lab Findings: Abnormal Lab Results 07/17/16 07/17/16 Range/Units 05:59 05:59 WBC 12.6 H (4.0-10.5) K/mm3 RBC 3.33 L (4.2-5.4) M/mm3 Hgb 9.7 L (12.5-16.0) gm/dL Hct 32.0 L (37.0-47.0) % MCHC 30.3 L (32-36) g/dl RDW 14.9 H (11.5-14.0) % MPV 11.0 H (6.0-9.5) fl Immature Gran % (Auto) 2.80 H (0.001-0.429) % Immature Gran # (Auto) 0.35 H (0.000-0.0310) K/mm3 Lymphocytes % 14.6 L (20-51) % Neutrophils # 9.0 H (1.3-6.0) K/mm3 Monocytes # 1.1 H (0.0-1.0) k/mm3 Random Glucose 153 H (70-110) mg/dL Albumin 2.2 L (3.4-5.0) gm/dl - Exam Constitutional: Present: Alert, Oriented x3, Cooperative, No distress Respiratory: Present: lungs clear, normal breath sounds Cardiovascular/Chest: Present: irregularly irregular Abdomen: Present: soft, nontender Skin Exam: Present: normal color Assessment/Plan - Problems/Diagnosis (1) Atrial fibrillation Problem: Chronic Narrative: Continued to be in atrial fibrillation in spite of MULTAQ therefore this will be discontinued Continue metoprolol 400 mg a day for rate control Hold PRADAXA now then will be restarted right after surgery (2) Osteomyelitis Problem: Acute Qualifiers: Osteomyelitis type: other acute Osteomyelitis location: foot Laterality: right Qualified Code(s): M86.171 - Other acute osteomyelitis, right ankle and foot Narrative: Wound culture grew Staphylococcus aureus sensitive to CEFAZOLYN (3) Diabetes Problem: Chronic Qualifiers: Diabetes mellitus type: type 2 (4) Anemia Problem: Acute Qualifiers: Anemia type: iron deficiency Narrative: HEME OCCULT still pending continue iv iron
[2016-07-17] MEDS: DABIGATRAN ETEXILATE MESYLATE 150 MG CAPSULE PO SCH ×2 (09:36→20:47)
[2016-07-17] MEDS: ALLOPURINOL 300 MG TABLET PO SCH (09:41)
[2016-07-17] MEDS: LOSARTAN POTASSIUM 50 MG TABLET PO SCH (09:41)
[2016-07-17] MEDS: SACCHAROMYCES BOULARDII 250 MG CAPSULE PO SCH ×2 (09:43→20:48)
[2016-07-17] MEDS: IRON SUCROSE COMPLEX 100 MG in NORMAL SALINE 100 ML IV SCH (09:43)
[2016-07-17] MEDS: METOPROLOL SUCCINATE 100 MG TABLET.SA PO SCH ×2 (09:43→20:48)
[2016-07-17] MEDS ORDERED: RINGERS SOLUTION,LACTATED 1,000 ML IV ONE (12:25)
[2016-07-17] MEDS ORDERED: LIDOCAINE HCL 50 ML VIAL IJ ONE (12:35)
[2016-07-17] MEDS ORDERED: BUPIVACAINE HCL 50 ML VIAL IJ ONE (12:35)
[2016-07-17] MEDS: ROSUVASTATIN CALCIUM 10 MG TABLET PO SCH (20:47)
[2016-07-17] MEDS ORDERED: HYDROcodone/ACETAMINOPHEN 1 EACH TABLET PO PRN (21:10)
[2016-07-18] MEDS: ceFAZolin SODIUM 1 GM in DEXTROSE 5 % IN WATER 100 ML IV SCH ×6 (03:01→17:54)
[2016-07-18 05:12] LABS: Hematocrit 29.8 % (37.0-47.0); Hemoglobin 9.1 gm/dL (12.5-16.0); Mean Cell Volume 94.9 fl (78-100); Mean Corpuscular Hgb Conc 30.5 g/dl (32-36); Mean Platelet Volume 10.6 fl (6.0-9.5); Neutrophil # 7.7 K/mm3 (1.3-6.0); Neutrophil % 71.4 % (42-75.0); Platelet Count 289 K/mm3 (150-450); Red Blood Count 3.14 M/mm3 (4.2-5.4); Red Cell Distribution Width 15.1 % (11.5-14.0); White Blood Count 10.7 K/mm3 (4.0-10.5)
[2016-07-18 05:29] LABS: Anion Gap 11.6 mmol/L (6.8-13.8); BUN/Creatinine Ratio 9.7 (9.0-21.6); Bilirubin, Total 0.7 mg/dL (0.0-1.1); Ca. Corrected For Albumin 9.9 mg/dL (8.4-10.2); Calcium * 8.6 mg/dL (7.9-10.9); Carbon Dioxide 28.8 mmol/L (24-32.6); Potassium 4.4 mmol/L (3.4-4.6); Total Protein 6.7 gm/dL (6.2-8.2)
[2016-07-18 05:33] LABS: CRP 19.6 mg/dL (0.0-0.9)
[2016-07-18] MEDS: SACCHAROMYCES BOULARDII 250 MG CAPSULE PO SCH ×2 (09:33→21:19)
[2016-07-18] MEDS: LOSARTAN POTASSIUM 50 MG TABLET PO SCH (09:33)
[2016-07-18] MEDS: ALLOPURINOL 300 MG TABLET PO SCH (09:34)
[2016-07-18] MEDS: DABIGATRAN ETEXILATE MESYLATE 150 MG CAPSULE PO SCH ×2 (09:34→21:18)
[2016-07-18] MEDS: METOPROLOL SUCCINATE 100 MG TABLET.SA PO SCH ×2 (09:34→21:17)
[2016-07-18] MEDS: IRON SUCROSE COMPLEX 100 MG in NORMAL SALINE 100 ML IV SCH (09:34)
[2016-07-18] MEDS: INSULIN REGULAR, HUMAN 100 UNITS/ML VIAL SC SCH ×3 (12:19→21:14)
--- NOTE | 2016-07-18 16:59 | PN ---
Subjective - Date and Time Seen Date: 07/18/16 Time: 11:00 Subjective Narrative: [place] reports doing better. Denies fever, chills, N/v. Pain is controlled. Objective - Vitals Vitals: Last Vital Signs Temp 36.6 C 07/18/16 14:49 Pulse 112 H 07/18/16 14:49 Resp 20 07/18/16 14:49 BP 145/78 07/18/16 14:49 Pulse Ox 94 07/18/16 14:49 - Abnormal Lab Findings Abnormal Lab Findings: Abnormal Lab Results 07/18/16 07/18/16 Range/Units 05:05 05:05 WBC 10.7 H (4.0-10.5) K/mm3 RBC 3.14 L (4.2-5.4) M/mm3 Hgb 9.1 L (12.5-16.0) gm/dL Hct 29.8 L (37.0-47.0) % MCHC 30.5 L (32-36) g/dl RDW 15.1 H (11.5-14.0) % MPV 10.6 H (6.0-9.5) fl Immature Gran % (Auto) 2.90 H (0.001-0.429) % Immature Gran # (Auto) 0.31 H (0.000-0.0310) K/mm3 Lymphocytes % 12.8 L (20-51) % Monocytes % 10.9 H (0.0-9) % Neutrophils # 7.7 H (1.3-6.0) K/mm3 Lymphocytes # 1.4 L (1.5-3.5) k/mm3 Monocytes # 1.2 H (0.0-1.0) k/mm3 Random Glucose 199 H D (70-110) mg/dL C-Reactive Prot, Quant 19.6 H (0.0-0.9) mg/dL Albumin 2.0 L (3.4-5.0) gm/dl - Exam Constitutional: Present: Alert, Oriented x3, Cooperative Respiratory: Present: lungs clear, normal breath sounds Cardiovascular/Chest: Present: no murmur, irregularly irregular Abdomen: Present: Normal bowel sounds, soft, nontender, nondistended Assessment/Plan Plan Narrative: WBC improved, but still elevated. Continue IV antibiotics. If WBC normalizes tomorrow may change to oral antibiotics and consider discharge to home in 1-2 days if leukocytosis resolved. - Problems/Diagnosis (1) Osteomyelitis Problem: Acute Qualifiers: Osteomyelitis type: other acute Osteomyelitis location: foot Laterality: right Qualified Code(s): M86.171 - Other acute osteomyelitis, right ankle and foot (2) Diabetic ulcer of toe Problem: Acute (3) Atrial fibrillation Problem: Chronic
[2016-07-18] MEDS: ROSUVASTATIN CALCIUM 10 MG TABLET PO SCH (21:20)
[2016-07-19] MEDS: ceFAZolin SODIUM 1 GM in DEXTROSE 5 % IN WATER 100 ML IV SCH ×4 (01:56→10:14)
[2016-07-19 05:54] LABS: Hematocrit 31.2 % (37.0-47.0); Hemoglobin 9.6 gm/dL (12.5-16.0); Mean Corpuscular Hemoglobin 29.5 pg (27-31); Mean Corpuscular Hgb Conc 30.8 g/dl (32-36); Mean Platelet Volume 11.2 fl (6.0-9.5); Neutrophil # 5.6 K/mm3 (1.3-6.0); Neutrophil % 64.9 % (42-75.0); Platelet Count 288 K/mm3 (150-450); Red Blood Count 3.25 M/mm3 (4.2-5.4); White Blood Count 8.5 K/mm3 (4.0-10.5)
[2016-07-19 06:10] LABS: Anion Gap 12.7 mmol/L (6.8-13.8); Calcium * 8.8 mg/dL (7.9-10.9); Carbon Dioxide 26.8 mmol/L (24-32.6); Estimated Creat Clear 66.5; Potassium 4.5 mmol/L (3.4-4.6)
[2016-07-19] MEDS: INSULIN REGULAR, HUMAN 100 UNITS/ML VIAL SC SCH ×4 (06:30→20:34)
[2016-07-19] MEDS: IRON SUCROSE COMPLEX 100 MG in NORMAL SALINE 100 ML IV SCH (09:35)
[2016-07-19] MEDS: SACCHAROMYCES BOULARDII 250 MG CAPSULE PO SCH ×2 (09:35→20:23)
[2016-07-19] MEDS: DABIGATRAN ETEXILATE MESYLATE 150 MG CAPSULE PO SCH ×2 (09:35→20:23)
[2016-07-19] MEDS: METOPROLOL SUCCINATE 100 MG TABLET.SA PO SCH ×2 (09:35→20:24)
[2016-07-19] MEDS: ALLOPURINOL 300 MG TABLET PO SCH (09:35)
[2016-07-19] MEDS: LOSARTAN POTASSIUM 50 MG TABLET PO SCH (09:35)
[2016-07-19] MEDS ORDERED: LEVOFLOXACIN 750 MG TABLET PO ONE (15:05)
[2016-07-19] MEDS: ROSUVASTATIN CALCIUM 10 MG TABLET PO SCH (20:23)
--- NOTE | 2016-07-19 22:47 | PN ---
Subjective - Date and Time Seen Date: 07/19/16 Time: 13:16 Subjective Narrative: She reports doing well. No concerns. Pain controlled. No nausea, vomiting, fever , or chills. Objective - Vitals Vitals: Last Vital Signs Temp 36.7 C 07/19/16 21:30 Pulse 99 07/19/16 21:30 Resp 20 07/19/16 21:30 BP 121/85 07/19/16 21:30 Pulse Ox 93 07/19/16 21:30 - Abnormal Lab Findings Abnormal Lab Findings: Abnormal Lab Results 07/19/16 07/19/16 Range/Units 04:55 04:55 RBC 3.25 L (4.2-5.4) M/mm3 Hgb 9.6 L (12.5-16.0) gm/dL Hct 31.2 L (37.0-47.0) % MCHC 30.8 L (32-36) g/dl RDW 15.0 H (11.5-14.0) % MPV 11.2 H (6.0-9.5) fl Immature Gran % (Auto) 4.60 H (0.001-0.429) % Immature Gran # (Auto) 0.39 H (0.000-0.0310) K/mm3 Lymphocytes % 17.2 L (20-51) % Monocytes % 10.0 H (0.0-9) % Random Glucose 193 H (70-110) mg/dL - Exam Constitutional: Present: Alert, Oriented x3, Cooperative ENT Exam: Present: hearing grossly normal Respiratory: Present: lungs clear, normal breath sounds Cardiovascular/Chest: Present: no murmur, irregularly irregular Abdomen: Present: Normal bowel sounds, soft, nontender, nondistended Assessment/Plan - Problems/Diagnosis (1) Osteomyelitis Problem: Acute Qualifiers: Osteomyelitis type: other acute Osteomyelitis location: foot Laterality: right Qualified Code(s): M86.171 - Other acute osteomyelitis, right ankle and foot Narrative: WBC normalized today. Discontinued IV cefazolin. Started oral Levaquin based on cultures. If tolerating oral levaquin and WBC stable, may consider discharge to tomorrow. (2) Diabetic ulcer of toe Problem: Acute (3) Atrial fibrillation Problem: Chronic
[2016-07-20 06:06] LABS: Hematocrit 35.2 % (37.0-47.0); Hemoglobin 10.7 gm/dL (12.5-16.0); Mean Cell Volume 95.4 fl (78-100); Mean Corpuscular Hgb Conc 30.4 g/dl (32-36); Mean Platelet Volume 10.1 fl (6.0-9.5); Neutrophil # 6.9 K/mm3 (1.3-6.0); Neutrophil % 67.7 % (42-75.0); Platelet Count 369 K/mm3 (150-450); Red Blood Count 3.69 M/mm3 (4.2-5.4); Red Cell Distribution Width 15.2 % (11.5-14.0); White Blood Count 10.2 K/mm3 (4.0-10.5)
[2016-07-20 06:18] LABS: Albumin * 2.4 gm/dl (3.4-5.0); Anion Gap 14.9 mmol/L (6.8-13.8); BUN/Creatinine Ratio 13.2 (9.0-21.6); Bilirubin, Total 0.7 mg/dL (0.0-1.1); CRP 10.9 mg/dL (0.0-0.9); Carbon Dioxide 28.7 mmol/L (24-32.6); Potassium 4.6 mmol/L (3.4-4.6); Total Protein 7.9 gm/dL (6.2-8.2)
[2016-07-20 06:37] VITALS: BP 174/78
[2016-07-20] MEDS: INSULIN REGULAR, HUMAN 100 UNITS/ML VIAL SC SCH ×2 (07:29→11:15)
[2016-07-20] MEDS ORDERED: DIGOXIN 0.25 MG TABLET PO ONE (08:20)
--- NOTE | 2016-07-20 08:46 | DS ---
(1) Atrial fibrillation Problem: Chronic (2) Osteomyelitis Problem: Acute Qualifiers: Osteomyelitis type: other acute Osteomyelitis location: foot Laterality: right Qualified Code(s): M86.171 - Other acute osteomyelitis, right ankle and foot (3) Diabetes Problem: Chronic Qualifiers: Diabetes mellitus type: type 2 (4) Anemia Problem: Acute Qualifiers: Anemia type: iron deficiency Description of Stay: 65-year-old white female admitted because of pain and swelling of the right foot she is diabetic out of control she is obese sedimentation rate and CRP are markedly elevated she was diagnosed to have osteomyelitis of the right fourth toe; culture was obtained and she was treated with the ampicillin and vancomycin. Wound culture swab came back Staphylococcus aureus but not MRSA pain and swelling gradually improved she was seen by cushion cover inspector Dr. Ramirez she underwent resection of the tip of the right fourth toe and wound culture came back to be Streptococcus G sensitive to most antibiotic so the antibiotic will be changed to cephalexin 500 mg by mouth as an outpatient. She was also found out to be anemic with low iron she received some IV venofer she would continue continue to receive oral iron supplement stool for Hemoccult was ordered but not available yet this will be done as an outpatient Procedures Performed: none - see note of Discharge Disposition: Home self care Disposition: Home self-care Condition: Fair Discharge Activity: Activity as tolerated Discharge Diet: Consistent carbs Referrals: Cruz Bynum MD [Primary Care Provider] - Additional Patient Instructions (free text): Follow-up with Dr. Ramirez Follow-up with Dr. Bynum in 1 week Prescriptions (Any new or edited meds): HYDROcodone/ACETAMINOPHEN [[place] 5-325] 1 tab PO Q4H PRN #100 tablet PRN Reason: Moderate Pain Saccharomyces Boulardii [Florastor] 250 mg PO BID #100 capsule Complete Home Medications List: Complete Home Medication List: glyBURIDE [Glyburide] 2.5 mg PO BID 06/29/13 metFORMIN HCL [Metformin HCl] 1,000 mg PO BID 06/29/13 Losartan Potassium [Cozaar] 25 mg PO DAILY #0 tablet 08/23/13 Allopurinol [Zyloprim] 300 mg PO DAILY 08/31/14 Dabigatran Etexilate Mesylate [Pradaxa] 150 mg PO BID 08/31/14 Dronedarone Hydrochloride [Multaq] 400 mg PO BID 08/31/14 Atorvastatin Calcium 10 mg PO HS 07/13/16 Calcium Carbonate [Tums] 300 mg PO PRN PRN 07/13/16 Metoprolol Succinate [Toprol Xl] 200 mg PO BID 07/13/16 Multivitamin tab PO DAILY 07/13/16 Cephalexin 500 mg PO BID #100 capsule 07/20/16 Digoxin [Lanoxin] 0.125 mg PO DAILY tablet 07/20/16 HYDROcodone/ACETAMINOPHEN [[place] 5-325] 1 tab PO Q4H PRN #100 tablet 07/20/16 Saccharomyces Boulardii [Florastor] 250 mg PO BID #100 capsule 07/20/16 metFORMIN HCL [Glucophage] 1,000 mg PO BIDWM tablet 07/20/16
[2016-07-20] MEDS: ALLOPURINOL 300 MG TABLET PO SCH (09:00)
[2016-07-20] MEDS: METOPROLOL SUCCINATE 100 MG TABLET.SA PO SCH (09:00)
[2016-07-20] MEDS: DABIGATRAN ETEXILATE MESYLATE 150 MG CAPSULE PO SCH (09:00)
[2016-07-20] MEDS: SACCHAROMYCES BOULARDII 250 MG CAPSULE PO SCH (09:01)
[2016-07-20] MEDS: LOSARTAN POTASSIUM 50 MG TABLET PO SCH (09:01)
[2016-07-20] MEDS: IRON SUCROSE COMPLEX 100 MG in NORMAL SALINE 100 ML IV SCH (09:01)
[2016-07-20] MEDS ORDERED: LEVOFLOXACIN 750 MG TABLET PO SCH (11:00)
[2016-07-21] MEDS ORDERED: DIGOXIN 0.125 MG TABLET PO SCH (09:00)
--- NOTE | 2016-07-21 16:37 | PN ---
Subjective - Date and Time Seen Date: 07/20/16 Time: 09:45 Subjective Narrative: Pt evaluated at bedside. Denies any N/V/F/C. Denies any pain in her right foot /toes. No dressing applied to right foot at time of visit. Surgical dressing removed by PCP, no new dressing applied. Foot is place in surgical shoe, covered with blanket. Surgical site exposed. Objective - Review of Systems Neurological: Reports: Numbness Skin: Reports: Other - Partial ampuation right 3rd toe. Misc: All systems neg except as marked - Vitals Vitals: Last Vital Signs Temp 36.4 C L 07/20/16 09:00 Pulse 109 H 07/20/16 09:01 Resp 16 07/20/16 09:00 BP 174/78 07/20/16 09:01 Pulse Ox 96 07/20/16 09:00 - Exam Constitutional: Present: Alert, Oriented x3, Cooperative, No distress Skin Exam: Present: other - Dressing to right foot has been removed, surgical site exposed. Incision to right 3rd toe remains well approximated with sutures intact. Minimal serosanguinous drainage. Plantar skin of foot peeling after reduction in swelling about the foot. Neurologic: Present: sensory deficit Assessment/Plan - Problems/Diagnosis (1) Diabetic ulcer of toe Problem: Acute Narrative: New dressing applied to right foot. To be left CDI until f/u appointment. Ok for d/c from hospital. Will f/u in my office on 07/23/2016. (2) Osteomyelitis Problem: Acute Qualifiers: Osteomyelitis type: other acute Osteomyelitis location: foot Laterality: right Qualified Code(s): M86.171 - Other acute osteomyelitis, right ankle and foot Narrative: New dressing right foot. Keep CDI. Weight bearing as tolerated in surgical shoe. Must be worn at all times when walking. F/u as scheduled.
== END 2016-07-20 13:18 | disposition home or self-care (01) | DRG 505 ==
LOC: MS 11:41
PROVIDERS: ADMIT Internal Medicine; ATTEND Internal Medicine
PROC: 0Y6T0Z2 Detachment at Right 3rd Toe, Mid, Open Approach (ICD-10-PCS; principal; 2016-07-17 12:30)
DX: M86.171 Other acute osteomyelitis, right ankle and foot (principal); B95.61 Methicillin susceptible Staphylococcus aureus infection as the cause of diseases classified elsewhere; I48.2 Chronic atrial fibrillation; E11.9 Type 2 diabetes mellitus without complications; I10 Essential (primary) hypertension; E78.5 Hyperlipidemia, unspecified; D50.9 Iron deficiency anemia, unspecified; Z79.84 Long term (current) use of oral hypoglycemic drugs; Z79.02 Long term (current) use of antithrombotics/antiplatelets; Z86.73 Personal history of transient ischemic attack (TIA), and cerebral infarction without residual deficits